=== PATIENT | male | born 1965 | race Caucasian/White ===

== ENCOUNTER 2019-09-06 08:42 | Day surgery (SDC) | payer BC ==
[~2019-09-06] VITALS: Ht 180.3 cm; Wt 105.5 kg
[2019-09-06] MEDS ORDERED: PRIL40 PO (09:00)
[2019-09-06] MEDS ORDERED: PRINZIDE 12.5 M1 TA1 PO (09:00)
[2019-09-06] MEDS ORDERED: ZOLOFT 50MG50 MG PO (09:01)
[2019-09-06] MEDS ORDERED: FLONASEALLERGY NS (09:02)
[2019-09-06] MEDS ORDERED: CLARITIN 1010 MG/TAB PO (09:02)
[2019-09-06] MEDS ORDERED: ANDROGEL1.62PKT2 TOP (09:03)
[2019-09-06 09:46] VITALS: BP 115/78; PULSE 70; TEMP 97.5
[2019-09-06 10:25] VITALS: BP 111/79; PULSE 64; TEMP 97.3
--- NOTE | 2019-09-06 10:25 | NUR ---
Pt to [facility] via cart. Pt awake and alert. Pt denies pain or nausea. Pt ambulates to recliner with stand by assist. Warm blanket provided. in room. VSS. Water given and pt takes sips without diffiuclties. Will continue to monitor. Call light within reach.
[2019-09-06 10:40] VITALS: BP 116/79; PULSE 64
--- NOTE | 2019-09-06 10:40 | NUR ---
Juice and jello given per pt request. Will continue to monitor. Call lightl within reach.
[2019-09-06 10:55] VITALS: BP 115/84; PULSE 58
--- NOTE | 2019-09-06 10:55 | NUR ---
Pt continues to rest. Denies needs. Call light within reach.
[2019-09-06 11:10] VITALS: BP 127/89; PULSE 63
--- NOTE | 2019-09-06 11:10 | NUR ---
Pt resting. Denies needs. Call light within reach.
--- NOTE | 2019-09-06 11:20 | NUR ---
Discharge instructions reviewed. Pt voices understanding. IV site discontinued with all parts intact. Pt up to dress. Call light within reach.
--- NOTE | 2019-09-06 11:30 | NUR ---
Pt escorted to private car via wheel chair. Pt accompanied home by his .
== END 2019-09-06 11:30 | disposition home or self-care (01) ==
LOC: SDCO 08:42
DX: Z12.11 Encounter for screening for malignant neoplasm of colon (principal); K21.0 Gastro-esophageal reflux disease with esophagitis; K44.9 Diaphragmatic hernia without obstruction or gangrene; Z80.0 Family history of malignant neoplasm of digestive organs; F32.9 Major depressive disorder, single episode, unspecified; F41.9 Anxiety disorder, unspecified
CPT/HCPCS: J2250; J3010; J7030

== ENCOUNTER 2021-06-18 10:14 | Day surgery (SDC) | payer BC ==
[~2021-06-18] VITALS: Ht 180.3 cm; Wt 111.4 kg
[~2021-06-18 10:14] MED LIST: ANDROGEL1.62PKT2 TOP; CLARITIN 1010 MG/TAB PO; FLONASEALLERGY NS; PRIL40 PO; PRINZIDE 12.5 M1 TA1 PO; ZOLOFT 50MG50 MG PO
[2021-06-18 10:56] VITALS: BP 130/94; PULSE 74; TEMP 96.6
[2021-06-18 11:35] VITALS: BP 116/99; PULSE 71; TEMP 97.9
[2021-06-18 11:50] VITALS: BP 118/85; PULSE 73
[2021-06-18 12:05] VITALS: BP 123/84; PULSE 64
--- NOTE | 2021-06-18 12:30 | NUR ---
1135- Pt returns from endo procedure via cart to [facility]. Pt ambulates from cart to recliner with RN assist. Monitors on and alarms set. Call light within reach. Pt alert and oriented. Pt requests coffee and jello. Pt denies any pain or nausea. 1150- Pt taking food and drink well. No complications noted. 1205- Discharge instructions given to pt. All questions answered to pt and 's satisfaction. Handed to education material and discharge information. 1230 Pt transferred out of the hospital via wheelchair and RN assist, to private vehicle driven by .
== END 2021-06-18 12:30 | disposition home or self-care (01) ==
LOC: SDCO 10:14
DX: K21.00 Gastro-esophageal reflux disease with esophagitis, without bleeding (principal); K44.9 Diaphragmatic hernia without obstruction or gangrene; K31.A0 Gastric intestinal metaplasia, unspecified; I10 Essential (primary) hypertension; F41.9 Anxiety disorder, unspecified; Z79.899 Other long term (current) drug therapy; Z80.0 Family history of malignant neoplasm of digestive organs
CPT/HCPCS: J2704; J7120